=== PATIENT | female | born 1995 | race Caucasian/White ===

== ENCOUNTER 2018-12-13 20:16 | Emergency (ER) | payer OTHER ==
--- NOTE | 2018-12-13 20:36 | UC ---
Skin Complaint HPI - HPI Summary HPI Summary: 23 yo female presents with lip swelling. She tells me that around 1900 this evening she was sitting at home eating salt and vinegar chips that she has done many times in the past. About 5 minutes into eating the chips she notices upper and lower lip swelling that made it difficult to speak. She took benadryl 50mg and iced her lips. Swelling did not go down, therefore she called an [employer] to come to . Upon arrival here her swelling significantly improved, but was still slightly present. During this time she had no trouble breathing or swallowing, no nausea or vomiting, no wheezing, SOB, or chest pain. She denies allergies to any foods or medications. She has been on OBC and spironolactone since 03/2018 without issue. - History of Current Complaint Time Seen by Provider: 12/13/18 20:36 Stated Complaint: ALLERGIC REACTION Hx Obtained From: Patient Onset/Duration: Sudden Onset - Allergy/Home Medications Allergies/Adverse Reactions: Allergies Allergy/AdvReac Type Severity Reaction Status Date / Time bee venom protein (honey bee) Allergy Severe Hives Verified 12/13/18 20:42 Home Medications: Home Medications Control 1 tab PO DAILY 12/13/18 [History Confirmed 12/13/18] Spironolactone TAB* [Aldactone TAB*] 50 mg PO DAILY 12/13/18 [History Confirmed 12/13/18] PMH/Surg Hx/FS Hx/Imm Hx - Additional Past Medical History Additional PMH: PCOS - Surgical History Surgical History: None - Family History Known Family History: Positive: Non-Contributory - Social History Occupation: Student Lives: Dormitory/Roommates Alcohol Use: Occasionally Substance Use Type: None Smoking Status (MU): Never Smoked Tobacco Review of Systems All Other Systems Reviewed And Are Negative: No Constitutional: Positive: Negative Skin: Positive: Negative Eyes: Positive: Negative ENT: Positive: Other - Lip swelling Respiratory: Positive: Negative Cardiovascular: Positive: Negative Neurovascular: Positive: Negative Neurological: Positive: Negative Psychological: Positive: Negative Physical Exam - Summary Physical Exam Summary: GENERAL: NAD. WDWN. No distress. SKIN: No rashes, open wounds, or erythema. HEENT: Slight upper and lower lip edema. No periorbital or other facial edema. Airway patent without oropharyngeal or tongue edema. NECK: Supple. Nontender. No lymphadenopathy. CHEST: CTAB. No wheezing. No accessory muscle use. Breathing comfortably and in no distress. CV: RRR. Pulses intact. Cap refill <2seconds NEURO: Alert. PSYCH: Age appropriate behavior. Triage Information Reviewed: Yes Vital Signs: Vital Signs (72 hours) 12/13/18 12/13/18 20:34 21:52 Temperature 99.7 F 99.5 F Pulse Rate 90 88 Respiratory 16 16 Rate Blood Pressure 130/93 111/80 (mmHg) O2 Sat by Pulse 100 100 Oximetry Vital Signs Reviewed: Yes Course/Dx - Course Course Of Treatment: ~2039 Discussed with pt that her symptoms are improving with benadryl and that she likely had an allergic reaction to the chips or sensitivity reaction to the acidity of the chips. Plan to give her solumedrol 125mg and dc with pepcid, prednisone po, and epipen. ~ 2054 before solumedrol - pt notes a rash on her chest that was not present during the interview or exam. Erythematous urticaria appearing. --- She was given Solumedrol 125mg at 2100 and observed until 2134. She had complete resolution of her symptoms with slight left upper lip residual edema, but no more rash or facial edema. No throat itching/swelling, difficulty breathing, SOB, wheezing, or cough. She feels much better. - Diagnoses Provider Diagnosis: Allergic reaction, Lip swelling Discharge ED - Sign-Out/Discharge Documenting (check all that apply): Patient Departure All imaging exams completed and their final reports reviewed: No Studies - Discharge Plan Condition: Stable Disposition: HOME Prescriptions: EPINEPHrine [Epipen 2-Peter] 0.3 mg IM ONCE PRN #1 inj PRN Reason: Allergy Symptoms Famotidine [Pepcid] 20 mg PO DAILY #7 tab predniSONE TAB* [Deltasone 20 MG TAB*] 20 mg PO DAILY #14 tab Patient Education Materials: Food Allergy (ED), Angioedema (ED), General Allergic Reaction (ED) Referrals: No Primary Care Phys,NOPCP [Primary Care Provider] - Additional Instructions: If you develop a fever, shortness of breath, chest pain, new or worsening symptoms - please call your PCP or go to the ED immediately. 1) Take benadryl 25mg once in the morning and once in the late afternoon/early evening 2) Take pepcid and prednisone as prescribed beginning tomorrow -Avoid getting over-heated (hot showers, hot tubs, exercise) for at least 48 hours - Try to avoid aspirin, NSAIDs (Motrin, Aleve, Naprosyn) for 2-3 days - Okay to apply cool compresses to the area of injury - Fill your prescription for the epi pen - keep with you and use if you develop an reaction that causes difficulty breathing, facial or mouth swallowing, or any other concerns - call 911 if you use your epi pen -Contact your doctor or return here with questions or concerns - Billing Disposition and Condition Condition: STABLE Disposition: Home
[2018-12-13] MEDS ORDERED: methylPREDNISolone 125 MG* 2 ML VIAL IM ONE (20:57)
[2018-12-13 21:53] VITALS: BP 111/80
== END 2018-12-13 21:53 | disposition home or self-care (01) ==
LOC: UCEAST 20:16
DX: T78.1XXA Other adverse food reactions, not elsewhere classified, initial encounter (principal); X58.XXXA Exposure to other specified factors, initial encounter
CPT/HCPCS: 96372; 99202; G0463; J2930

== ENCOUNTER 2018-12-20 15:29 | Emergency (ER) | payer OTHER ==
[2018-12-20 16:22] VITALS: BP 105/68
--- NOTE | 2018-12-20 17:23 | UC ---
Complaint Female HPI - HPI Summary HPI Summary: 23 y/o female presents to the urgent care accompany by mother c/o urinary frequency specially at night for the past week s/p allergic reaction. Pt reports she was seen here at the clinic on 12/13/2018 for possible allergic reaction w/ lip swollen s/p eating some chips. She was given Sterodial injection and Rx Prednisone PO and Pepcid w/ epi - pen if needed. However, She has noticed intermittent frequency on urination at night time and she hasn't increased her daily fluid intake. She has chronic mid back pain due to her mild scoliosis. Pt denies fever, burning on urination, vaginal discharge, flank pain , Hx of STD's, SOB, ches tpain, RUVALCABA, dizziness, abdominal pain, N/V/D. Pt is UTD w/ all vaccines and has been very healthy as per mother. - History Of Current Complaint Chief Complaint: UCGU Stated Complaint: POSS UTI Time Seen by Provider: 12/20/18 17:22 Hx Obtained From: Patient Hx Last Menstrual Period: 3 weeks ago ?: No Onset/Duration: Gradual Onset, Lasting Weeks - 1 week of intermittent frequency on urination, Still Present Timing: Intermittent, Lasting Seconds Severity Initially: Mild Severity Currently: Mild Pain Intensity: 0 Pain Scale Used: 0-10 Numeric Character: Dull Aggravating Factor(s): Urination Alleviating Factor(s): Nothing Associated Signs And Symptoms: Positive: Negative. Negative: Fever, Back Pain, Vaginal Bleeding/Discharge, Vaginal Discharge, Nausea, Vomiting(# Of Episodes =) , Genital Swelling - Risk Factors Ectopic Risk Factor: Negative Ovarian Torsion Risk Factor: Negative - Allergies/Home Medications Allergies/Adverse Reactions: Allergies Allergy/AdvReac Type Severity Reaction Status Date / Time bee venom protein (honey bee) Allergy Severe Hives Verified 12/20/18 16:23 Home Medications: Home Medications Acetaminophen [Mapap] 650 mg PO ONCE PRN 12/20/18 [History Confirmed 12/20/18] Ethinyl Estradiol/Drospirenone [Gianvi 3 mg-0.02 mg Tablet] 1 tab PO QPM [History Confirmed 12/20/18] PMH/Surg Hx/FS Hx/Imm Hx Previously Healthy: Yes - Pt denies PMHX - Surgical History Surgical History: Yes Surgery Procedure, Year, and Place: oral surgery - Family History Known Family History: Positive: Hypertension, Diabetes - Social History Occupation: Student Lives: Dormitory/Roommates Alcohol Use: Occasionally Substance Use Type: None Smoking Status (MU): Never Smoked Tobacco - Immunization History Vaccination Up to Date: Yes Review of Systems All Other Systems Reviewed And Are Negative: Yes Constitutional: Positive: Negative Skin: Positive: Negative Eyes: Positive: Negative ENT: Positive: Negative Respiratory: Positive: Negative Cardiovascular: Positive: Negative Gastrointestinal: Positive: Negative Genitourinary: Positive: Negative, Frequency Motor: Positive: Negative Neurovascular: Positive: Negative Musculoskeletal: Positive: Negative Neurological: Positive: Negative Psychological: Positive: Negative Is Patient Immunocompromised?: No Physical Exam - Summary Physical Exam Summary: VITAL SIGNS: Reviewed. GENERAL: Patient is a well developed and nourished female who is sitting comfortable in the examining table. Patient is not in any acute respiratory distress. HEAD AND FACE: No signs of trauma. No ecchymosis, hematomas or skull depressions. No sinus tenderness. EYES: PERRLA, EOMI x 2, No injected conjunctiva, clear watery eyes, no nystagmus. No photophobia. EARS: Hearing grossly intact. Ear canals and tympanic membranes are within normal limits. MOUTH: pharynx with no erythema, no exudates,no palatal petechiae. no B/L tonsillar enlargement Uvula in midline. NECK: Supple, trachea is midline, no lymphadenopathy, no JVD, no carotid bruit, no c-spine tenderness, neck with full ROM. CHEST: Symmetric, no tenderness at palpation LUNGS: Clear to auscultation bilaterally. No wheezing or crackles. CVS: Regular rate and rhythm, S1 and S2 present, no murmurs or gallops appreciated. ABDOMEN: Soft, non-tender. No signs of distention. No rebound no guarding, and no masses palpated. Bowel sounds are normal. BACK:no scoliosis or lesions, non tender to palpation, No B/L CVA tenderness EXTREMITIES: FROM in all major joints, no edema, no cyanosis or clubbing. NEURO: Alert and oriented x 3. No acute neurological deficits. Speech is normal and follows commands. SKIN: Dry and warm Triage Information Reviewed: Yes Vital Signs: Initial Vital Signs Temp 98.8 F 12/20/18 16:18 Pulse 68 12/20/18 16:18 Resp 18 12/20/18 16:18 BP 105/68 12/20/18 16:18 Pulse Ox 100 12/20/18 16:18 Complaint Female Dx - Course Course Of Treatment: 23 y/o female presents to the urgent care accompany by mother c/o urinary frequency specially at night for the past week s/p allergic reaction. Pt reports she was seen here at the clinic on 12/13/2018 for possible allergic reaction w/ lip swollen s/p eating some chips. She was given Sterodial injection and Rx Prednisone PO and Pepcid w/ epi - pen if needed. However, She has noticed intermittent frequency on urination at night time and she hasn't increased her daily fluid intake. She has chronic mid back pain due to her mild scoliosis. Pt denies fever, burning on urination, vaginal discharge, flank pain , Hx of STD's, SOB, ches tpain, RUVALCABA, dizziness, abdominal pain, N/V/D. Pt is UTD w/ all vaccines and has been very healthy as per mother. Hx obtained. pt is hemodynamically stable, A&OX3. Vitals: WNL. PE: WNL. UA and test ordered. UA results: negative, test: negative. Mother and Pt explained results. However, Urine will be sent to lab for urine culture to r/o any abnormality since Mother is very concerned. They will be notified of any abnormality for further management. Pt also givne referral w/ [facility] structural metal fabricator apprentice for further management and testing. Mother and Pt advised If symptoms worsen w / fever and burning sensation to return to the urgent care or f/u with PCP for further treatment. D/C instructions explained. Pt understood and agreed. Left the clinic ambulating. - Differential Dx/Diagnosis Differential Diagnosis/HQI/PQRI: Cervicitis, Ovarian Cyst, , Renal Colic, Sexually Transmitted Disease, Ureteral Stone, Urinary Tract Infection Provider Diagnosis: Frequency of urination Discharge ED - Sign-Out/Discharge Documenting (check all that apply): Patient Departure - d/C home All imaging exams completed and their final reports reviewed: No Studies - Discharge Plan Condition: Stable Disposition: HOME Prescriptions: Cephalexin CAP* [Keflex CAP*] 500 mg PO TID #21 cap Nitrofurantoin Monohyd/M-Cryst [Macrobid 100 mg Capsule] 100 mg PO BID #10 cap Patient Education Materials: Urinary Urgency and Frequency (DC) Referrals: [facility] – [place] [facility] REFERRAL [Outside] - 3 Days Shane Jones MD [Medical Doctor] - 3 Days Additional Instructions: 1- Increase increase fluid intake. UA: negative 2-Urine sent for culture to r/o any abnormality, you will be notified for further treatment. 3-If you develop burning on urination or vaginal discharge or fever please return to the urgent care or f/u with your PCP. 4- Please f/u w/ Welfare Project Manager Dr Jones since recent allergic reaction for further management - Billing Disposition and Condition Condition: STABLE Disposition: Home
--- NOTE | 2018-12-22 16:06 | UC ---
- Progress Note Progress Note: Urine culture comes back with the preliminary results from December 20, 2018 as Escherichia coli greater than 100,000. Patient is not on an antibiotic. Nursing to call patient inform the patient of the positive urine culture. Sensitivities are pending. I have called in a prescription for Keflex 500 mg by mouth 3 times a day for 7 days which the patient is to start today. Reevaluation at the appropriate medical facility if worse. Course/Dx - Diagnoses Provider Diagnoses: Frequency of urination Discharge ED - Sign-Out/Discharge Documenting (check all that apply): Patient Departure All imaging exams completed and their final reports reviewed: No Studies - Discharge Plan Condition: Stable Disposition: HOME Prescriptions: Cephalexin CAP* [Keflex CAP*] 500 mg PO TID #21 cap Patient Education Materials: Urinary Urgency and Frequency (DC) [place] [facility] [place]] - 3 Days Shane Jones MD [Medical Doctor] - 3 Days Additional Instructions: 1- Increase increase fluid intake. UA: negative 2-Urine sent for culture to r/o any abnormality, you will be notified for further treatment. 3-If you develop burning on urination or vaginal discharge or fever please return to the urgent care or f/u with your PCP. 4- Please f/u w/ [employer] Back T[employer] Dr Jones since recent allergic reaction for further management - Billing Disposition and Condition Condition: STABLE Disposition: Home
--- NOTE | 2018-12-25 12:06 | UC ---
- Progress Note Progress Note: 23 year old female called with c/o vomiting with keflex, which has occurred in the past. Family requesting zofran to help her complete her course, however abx changed to macrobid based on C/S. Nurse to call patient. -Amy Course/Dx - Diagnoses Provider Diagnoses: Frequency of urination Discharge ED - Sign-Out/Discharge Documenting (check all that apply): Patient Departure All imaging exams completed and their final reports reviewed: No Studies - Discharge Plan Condition: Stable Disposition: HOME Prescriptions: Cephalexin CAP* [Keflex CAP*] 500 mg PO TID #21 cap Nitrofurantoin Monohyd/M-Cryst [Macrobid 100 mg Capsule] 100 mg PO BID #10 cap Patient Education Materials: Urinary Urgency and Frequency (DC) Referrals: [facility] – [place] PHYS[facility]IAN REFERRAL [Outside] - 3 Days Shane Jones MD [Medical Doctor] - 3 Days Additional Instructions: 1- Increase increase fluid intake. UA: negative 2-Urine sent for culture to r/o any abnormality, you will be notified for further treatment. 3-If you develop burning on urination or vaginal discharge or fever please return to the urgent care or f/u with your PCP. 4- Please f/u w/ [employer] Dr Jones since recent allergic reaction for further management - Billing Disposition and Condition Condition: STABLE Disposition: Home
== END 2018-12-20 17:56 | disposition home or self-care (01) ==
LOC: UCEAST 15:29
DX: R35.0 Frequency of micturition (principal)
CPT/HCPCS: 81003; 84702; 87077; 87086; 87186; 99211; G0463